=== PATIENT | male | born 1950 | race Caucasian/White ===

== ENCOUNTER 2016-09-17 16:00 | Emergency (ER) | payer OTHER ==
[2016-09-17 16:13] VITALS: BP 151/81
[2016-09-17] MEDS ORDERED: Ketorolac 60 MG/2 ML SDV IM ONE (16:28)
--- NOTE | 2016-09-17 18:56 | EDM.PDOC ---
ED HPI GENERAL MEDICAL PROBLEM - General Chief Complaint: General Stated Complaint: FELL ON BACK Time Seen by Provider: 09/17/16 16:55 Source of Information: Reports: Patient History Limitations: Reports: No limitations - History of Present Illness INITIAL COMMENTS - FREE TEXT/NARRATIVE: Feliciano is a 66 yo male who presents to the ER via private vehicle with concerns of muscle spasms in his back. States he was out ice fishing today and slipped on the ice, falling directly onto his back. Admits he didn't hit his head or have any severe pain initially. Continued to ice fish for a few hours and as the day went on started to notice some muscle spasms. States he found it difficulty with getting from a sitting to standing position. Upon arrival to the ER he had difficulty with ambulating as well d/t the spasms. Onset: today Location: Reports: back Improves with: Reports: Immobilization Worsens with: Reports: Movement Associated Symptoms: Reports: no other symptoms Back Pain Score (Numeric/FACES): 10 - Related Data Allergies Allergy/AdvReac Type Severity Reaction Status Date / Time morphine Allergy Cannot Verified 09/17/16 16:13 Remember Home Meds: Home Meds Albuterol Sulfate 2.5 mg NEB Q6H PRN 01/09/16 [History] Fexofenadine/Pseudoephedrine [Radha-D 12 Hour Tablet] 1 each PO Q12H PRN 01/08 [History] Sildenafil Citrate [Viagra] 25 mg PO ASDIRECTED PRN 01/09/16 [History] Budesonide/Formoterol [Symbicort 160-4.5 MCG] 2 puff INH BID 09/17/16 [History] atorvaSTATin [Lipitor] 20 mg PO BEDTIME 09/17/16 [History] metFORMIN [Glucophage] 1,000 mg PO BID 09/17/16 [History] Past Medical History HEENT History: Reports: Impaired vision Cardiovascular History: Reports: High cholesterol Endocrine/Metabolic History: Reports: Diabetes, type II Social & Family History - Tobacco Use Smoking Status *Q: Never Smoker - Caffeine Use Caffeine Use: Reports: Soda - Recreational Drug Use Recreational Drug Use: No ED ROS GENERAL - Review of Systems Review Of Systems: See Below Constitutional: Reports: no symptoms HEENT: Reports: No symptoms GI/Abdominal: Reports: No symptoms Musculoskeletal: Reports: back pain, muscle pain, muscle stiffness Neurological: Reports: Difficulty Walking. Denies: Dizziness, Headache, Numbness, Paresthesia, Seizure, Tingling, Weakness Psychiatric: Reports: No symptoms ED EXAM, GENERAL - Physical Exam Exam: See Below Exam Limited By: No limitations General Appearance: alert, no apparent distress Back Exam: decreased range of motion, muscle spasm (Lumbar paraspinal muscles L1 -L3), paraspinal tenderness. No: CVA tenderness (L), CVA tenderness (R), vertebral tenderness Neurological: alert, oriented, normal cognition, normal gait, normal reflexes, no motor/sensory deficits Psychiatric: normal affect, normal mood Skin Exam: Warm, Dry, Intact, Normal color, No rash Course - Vital Signs Last Recorded V/S: Last Vital Signs Temp 100.5 F 09/17/16 16:05 Pulse 102 H 09/17/16 16:05 Resp 20 09/17/16 16:05 BP 151/81 H 09/17/16 16:05 Pulse Ox 97 09/17/16 16:05 - Orders/Labs/Meds Orders: Active Orders 24 hr Category Date Time Status Thoracolumbar 2V [CR] Stat Exams 09/17/16 16:19 Taken Meds: Medications Discontinued Medications Generic Name Dose Route Start Last Admin Trade Name Freq PRN Reason Stop Dose Admin Ketorolac Tromethamine 60 mg 09/17/16 16:28 09/17/16 16:38 Toradol IM 09/17/16 16:29 60 mg ONETIME ONE Administration Orphenadrine Citrate 60 mg 09/17/16 16:28 09/17/16 16:39 Norflex IM 09/17/16 16:29 60 mg NOW STA Administration - Re-Assessments/Exams Free Text/Narrative Re-Assessment/Exam: X-ray of the thoracolumbar spine was done. Possible old compression fracture at T10, which Feliciano stated he had previously. No acute fractures noted to area of symptoms. 60mg of Norflex and 60mg of Toradol was given intramuscularly. Upon my arrival patient had significant improvement from the injections and was able to ambulate. Pain subsided from a 10 out of 10 to minimal presently. Will discharge home at this time with further instructions. and Feliciano both verbalized understanding and were in agreement. Departure - Departure Time of Disposition: 17:25 Disposition: Home, Self-Care 01 Condition: good Clinical Impression: Spasm of lumbar paraspinous muscle Instructions: Muscle Cramps and Spasms, Thoracic Strain, [id number] Referrals: PCP,None [Primary Care Provider] - Forms: ED Department Discharge Additional Instructions: 1) [place] 5/325 - 1-2 tablet every 4-6 hours as needed for pain 2) Toradol 10mg - 1 tablet every 8 hours as needed for pain/inflammation 3) Flexeril 10mg - 1 tablet every 8 hours as needed for muscle spasms 4) Rest 5) No more ice fishing!!!! 6) May try heat and ice as needed for relief. 7) Follow up if any concerns. - Problem List & Annotations (1) Spasm of lumbar paraspinous muscle SNOMED Code(s): 78280600, 55933593 Code(s): M62.830 - MUSCLE SPASM OF BACK Status: Acute - Problem List Review Problem List Initiated/Reviewed/Updated: Yes - My Orders Last 24 Hours: My Active Orders 09/17/16 16:19 Thoracolumbar 2V [CR] Stat - Assessment/Plan Last 24 Hours: My Active Orders 09/17/16 16:19 Thoracolumbar 2V [CR] Stat Plan: See course and additional instructions.
== END 2016-09-17 17:24 | disposition home or self-care (01) ==
LOC: CC.ED 16:00
DX: M62.830 Muscle spasm of back (principal); E78.00 Pure hypercholesterolemia, unspecified; E11.9 Type 2 diabetes mellitus without complications; Z79.84 Long term (current) use of oral hypoglycemic drugs; Z79.899 Other long term (current) drug therapy; Z88.5 Allergy status to narcotic agent; W00.0XXA Fall on same level due to ice and snow, initial encounter
CPT/HCPCS: 72080; 96372; 99283; J1885; J2360

== ENCOUNTER 2018-10-16 11:16 | Emergency (ER) | payer MEDICARE, BC ==
[2018-10-16] MEDS: fentaNYL 100 MCG/2 ML SDV IVPUSH ONE (11:25)
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
[2018-10-16] MEDS: Lidocaine 1% 20 ML MDV INJECT ONE (11:48)
[2018-10-16 12:02] VITALS: BP 143/88
[2018-10-16] MEDS: Acetaminophen/HYDROcodone 325-5 MG Tab PO ONE (12:16)
[2018-10-16] MEDS: ceFAZolin 1 GM Vial IVPUSH ONE (12:18)
== END 2018-10-16 13:12 ==
LOC: CC.ED 11:16
DX: S62.630B Displaced fracture of distal phalanx of right index finger, initial encounter for open fracture (principal); L08.9 Local infection of the skin and subcutaneous tissue, unspecified; E78.00 Pure hypercholesterolemia, unspecified; E11.9 Type 2 diabetes mellitus without complications; Z79.899 Other long term (current) drug therapy; Z88.5 Allergy status to narcotic agent; W31.2XXA Contact with powered woodworking and forming machines, initial encounter
CPT/HCPCS: 64450; 73140-F6; 96374; 96375; 99284; 99284-25; A9270-GY; J0690; J2001; J3010

== ENCOUNTER 2020-04-04 10:45 | Inpatient (IN) | payer MEDICARE, BC ==
[2020-04-04 11:26] LABS: CHLORIDE,CL 99 mEq/L (98-106); SODIUM,NA 137 mEq/L (136-145)
--- NOTE | 2020-04-04 11:58 | EDM.PDOC ---
ED HPI GENERAL MEDICAL PROBLEM - General Chief Complaint: Respiratory Problem Stated Complaint: SOB. COVID+ Time Seen by Provider: 04/04/20 11:00 Source of Information: Reports: Patient History Limitations: Reports: No Limitations - History of Present Illness INITIAL COMMENTS - FREE TEXT/NARRATIVE: States that he was diagnosed with COVID yesterday and has had an increase in SOB . States that his sats at home were running around 85%. When he arrived her per private car his sats were running between 94-95% on room air. He states that he had terrible diarrhea yesterday and that he had fainted when getting out of the bathroom last night. He has not had anything to eat today and minimal to drink. He complains of feeling weak. He has harsh cough which he states is non productive. Onset: Gradual Location: Reports: Generalized Associated Symptoms: Reports: Cough, cough w sputum, Fever/Chills, Loss of Appetite, Nausea/Vomiting, Shortness of Breath, Syncope headache Pain Score (Numeric/FACES): 4 - Related Data Allergies Allergy/AdvReac Type Severity Reaction Status Date / Time morphine AdvReac Nausea Verified 04/04/20 12:29 Home Meds: Home Meds Albuterol Sulfate 2.5 mg NEB Q6H PRN 01/09/16 [History] Fexofenadine/Pseudoephedrine [Radha-D 12 Hour Tablet] 1 each PO Q12H PRN 01/09/16 [History] Sildenafil Citrate [Viagra] 25 mg PO ASDIRECTED PRN 01/09/16 [History] metFORMIN [Glucophage] 1,000 mg PO BID 09/17/16 [History] Fluticasone Propionate [Flonase] 2 spray JOANN BID 10/16/18 [History] Rosuvastatin [Crestor] 5 mg PO DAILY 04/04/20 [History] Past Medical History HEENT History: Reports: Impaired Vision Cardiovascular History: Reports: High Cholesterol Respiratory History: Reports: Bronchitis, Recurrent Endocrine/Metabolic History: Reports: Diabetes, Type II Social & Family History - Family History Family Medical History: Noncontributory - Tobacco Use Smoking Status *Q: Never Smoker Second Hand Smoke Exposure: No - Caffeine Use Caffeine Use: Reports: Soda - Recreational Drug Use Recreational Drug Use: No - Living Situation & Occupation Living situation: Reports: , with Spouse Occupation: Retired ED ROS GENERAL - Review of Systems Review Of Systems: See Below Constitutional: Reports: Fever, Chills, Malaise, Weakness, Fatigue HEENT: Reports: No Symptoms Respiratory: Reports: Shortness of Breath, Cough Cardiovascular: Reports: No Symptoms. Denies: Edema GI/Abdominal: Reports: Diarrhea, Nausea : Reports: No Symptoms Musculoskeletal: Reports: No Symptoms Skin: Reports: No Symptoms Neurological: Reports: Weakness ED EXAM, GENERAL - Physical Exam Exam: See Below Exam Limited By: No Limitations General Appearance: Alert, WD/WN, Moderate Distress Ears: Normal External Exam, Normal Canal, Normal TMs Nose: Normal Inspection Throat/Mouth: Normal Inspection, Normal Oropharynx, No Airway Compromise Head: Atraumatic, Normocephalic Neck: Normal Inspection, Supple, Non-Tender Respiratory/Chest: Lungs Clear, Decreased Breath Sounds, Other (Very harsh non productive cough). No: Rhonchi, Wheezing Cardiovascular: Regular Rate, Rhythm, No Edema GI/Abdominal: Soft, Non-Tender, Other (hyperactive bowel sounds) Back Exam: Normal Inspection Extremities: Normal Inspection, No Pedal Edema, Normal Capillary Refill Neurological: Alert, Oriented, Normal Cognition Skin Exam: Warm, Dry, Intact Course - Vital Signs Last Recorded V/S: Last Vital Signs Temp 97.1 F 04/05/20 04:00 Pulse 62 04/05/20 04:00 Resp 16 04/05/20 04:00 BP 133/71 04/05/20 04:00 Pulse Ox 99 04/05/20 04:00 - Orders/Labs/Meds Orders: Active Orders 24 hr Category Date Time Status Chest 2V [CR] Stat Exams 04/04/20 10:46 Taken CULTURE BLOOD [BC] Stat Lab 04/04/20 11:12 Received CULTURE BLOOD [BC] Stat Lab 04/04/20 11:12 Received Blood Culture x2 Reflex Set [OM.PC] Stat Oth 04/04/20 10:46 Ordered Medication Orders Acetaminophen (Tylenol) 650 mg PO Q4H PRN PRN Reason: Pain (Mild 1-3)/fever Last Admin: 04/04/20 20:24 Dose: 650 mg Documented by: Admin: 04/04/20 13:07 Dose: 650 mg Documented by: SHAILESH Dexamethasone (Dexamethasone) 6 mg PO DAILY [facility] Last Admin: 04/04/20 14:19 Dose: 6 mg Documented by: SHAILESH Enoxaparin Sodium (Lovenox) 40 mg SUBCUT Q12H [facility] Last Admin: 04/04/20 23:44 Dose: 40 mg Documented by: Admin: 04/04/20 13:06 Dose: 40 mg Documented by: SHAILESH Fluticasone Propionate (Flonase) 0 gm JOANN BID [facility] Last Admin: 04/04/20 20:07 Dose: 2 spray Documented by: ELDA Lactated Ringer's (Ringers, Lactated) 1,000 mls @ 75 mls/hr IV ASDIRECTED [facility] Last Admin: 04/04/20 23:32 Dose: 75 mls/hr Documented by: Infusion: 04/04/20 23:32 Dose: 75 mls/hr Documented by: Admin: 04/04/20 13:07 Dose: 75 mls/hr Documented by: SHAILESH Metformin HCl (Glucophage) 1,000 mg PO BID [facility] Last Admin: 04/04/20 20:08 Dose: 1,000 mg Documented by: ELDA Rosuvastatin 5mg Tab (Ptom) 0 mg PO BEDTIME [facility] Last Admin: 04/04/20 20:06 Dose: 5 mg Documented by: ELDA Ondansetron HCl (Zofran) 4 mg IV Q6H PRN PRN Reason: Nausea/Vomiting Labs: Laboratory Tests 04/04/20 04/04/20 04/04/20 Range/Units 11:00 11:00 11:00 WBC 7.6 (5.0-10.0) 10^3/uL RBC 4.83 (4.50-6.00) 10^6/uL Hgb 14.3 (14.0-18.0) g/dL Hct 43.8 (40.0-54.0) % MCV 90.7 (82.0-94.0) fL MCH 29.6 (27.0-32.0) pg MCHC 32.6 L (33.0-38.0) g/dL RDW Coeff of Halle 13.8 (11.0-15.0) % Plt Count 141 L (150-400) 10^3/uL Neut % (Auto) 79.0 (35-85) % Lymph % (Auto) 14.7 (10-55) % [place] % (Auto) 6.2 (0-16) % Eos % (Auto) 0 (0-5) % Baso % (Auto) 0.1 (0-3) % Neut # (Auto) 6.03 (1.80-7.00) 10^3/uL Lymph # (Auto) 1.12 (1.00-4.80) 10^3/uL [place] # (Auto) 0.47 (0.00-0.80) 10^3/uL Eos # (Auto) 0.00 (0.00-0.45) 10^3/uL Baso # (Auto) 0.01 10^3/uL D-Dimer, Quantitative 0.33 (0.00-0.50) Sodium 137 (136-145) mEq/L Potassium 3.6 (3.5-5.0) mEq/L Chloride 99 (98-106) mEq/L Carbon Dioxide 28 (21-32) mmol/L BUN 21 H (7-18) mg/dL Creatinine 1.1 (0.7-1.3) mg/dL Est Cr Clr Drug Dosing 63.05 mL/min Estimated GFR (MDRD) > 60 (>=60) mL/min Glucose 109 H (75-99) mg/dL Lactic Acid (0.4-2.0) mmol/L Calcium 9.0 (8.4-10.1) mg/dL Magnesium 1.7 L (1.8-2.4) mg/dL Total Bilirubin 0.7 (0.0-1.0) mg/dL AST 24 (15-37) U/L ALT 28 (12-78) U/L Alkaline Phosphatase 46 (46-116) U/L C-Reactive Protein 5.9 H (0.2-0.8) mg/dL Total Protein 7.6 (6.4-8.2) g/dL Albumin 3.7 (3.4-5.0) g/dL 04/04/20 Range/Units 11:00 WBC (5.0-10.0) 10^3/uL RBC (4.50-6.00) 10^6/uL Hgb (14.0-18.0) g/dL Hct (40.0-54.0) % MCV (82.0-94.0) fL MCH (27.0-32.0) pg MCHC (33.0-38.0) g/dL RDW Coeff of Halle (11.0-15.0) % Plt Count (150-400) 10^3/uL Neut % (Auto) (35-85) % Lymph % (Auto) (10-55) % [place] % (Auto) (0-16) % Eos % (Auto) (0-5) % Baso % (Auto) (0-3) % Neut # (Auto) (1.80-7.00) 10^3/uL Lymph # (Auto) (1.00-4.80) 10^3/uL [place] # (Auto) (0.00-0.80) 10^3/uL Eos # (Auto) (0.00-0.45) 10^3/uL Baso # (Auto) 10^3/uL D-Dimer, Quantitative (0.00-0.50) Sodium (136-145) mEq/L Potassium (3.5-5.0) mEq/L Chloride (98-106) mEq/L Carbon Dioxide (21-32) mmol/L BUN (7-18) mg/dL Creatinine (0.7-1.3) mg/dL Est Cr Clr Drug Dosing mL/min Estimated GFR (MDRD) (>=60) mL/min Glucose (75-99) mg/dL Lactic Acid 1.7 (0.4-2.0) mmol/L Calcium (8.4-10.1) mg/dL Magnesium (1.8-2.4) mg/dL Total Bilirubin (0.0-1.0) mg/dL AST (15-37) U/L ALT (12-78) U/L Alkaline Phosphatase (46-116) U/L C-Reactive Protein (0.2-0.8) mg/dL Total Protein (6.4-8.2) g/dL Albumin (3.4-5.0) g/dL Meds: Medications Generic Name Dose Route Start Last Admin Trade Name Freq PRN Reason Stop Dose Admin Acetaminophen 650 mg 04/04/20 12:37 04/04/20 20:24 Tylenol PO 650 mg Q4H PRN Administration Pain (Mild 1-3)/fever Dexamethasone 6 mg 04/04/20 12:45 04/04/20 14:19 Dexamethasone PO 6 mg DAILY AMBER Administration Enoxaparin Sodium 40 mg 04/04/20 12:37 04/04/20 23:44 Lovenox SUBCUT 40 mg Q12H AMBER Administration Fluticasone Propionate 0 gm 04/04/20 20:00 04/04/20 20:07 Flonase JOANN 2 spray BID AMBER Administration Lactated Ringer's 1,000 mls @ 75 mls/hr 04/04/20 12:37 04/04/20 23:32 Ringers, Lactated IV 75 mls/hr ASDIRECTED AMBER Administration Metformin HCl 1,000 mg 04/04/20 20:00 04/04/20 20:08 Glucophage PO 1,000 mg BID AMBER Administration Rosuvastatin 5mg Tab 0 mg 04/05/20 20:00 04/04/20 20:06 Ptom PO 5 mg BEDTIME AMBER Administration Ondansetron HCl 4 mg 04/04/20 12:37 Zofran IV Q6H PRN Nausea/Vomiting Discontinued Medications Generic Name Dose Route Start Last Admin Trade Name Freq PRN Reason Stop Dose Admin Remdesivir 200 mg/ Sodium 250 mls @ 250 mls/hr 04/04/20 12:37 Chloride IV 04/04/20 12:38 ONETIME ONE - Re-Assessments/Exams Free Text/Narrative Re-Assessment/Exam: 04/04/[address] Xiong. He does not meet criteria for Rem desivir as his sats have maintained 94-95% on room air when he was in ER. His chest xray does not show any infiltrates at this time. He will be admitted for fluids and monitoring with repeat labs in the morning and CXR. agrees with admission. Departure - Departure Time of Disposition: 11:57 Disposition: Admitted As Inpatient 66 Condition: Fair Clinical Impression: COVID-19, Weakness Diarrhea Qualifiers: Diarrhea type: unspecified type Qualified Code(s): R19.7 - Diarrhea, unspecified - Discharge Information *PRESCRIPTION DRUG MONITORING PROGRAM REVIEWED*: Not Applicable *COPY OF PRESCRIPTION DRUG MONITORING REPORT IN PATIENT MARLENI: Not Applicable Sepsis Event Note (ED) - Evaluation Sepsis Screening Result: No Definite Risk - Problem List & Annotations (1) COVID-19 SNOMED Code(s): 563607776 Code(s): U07.1 - COVID-19 Status: Acute Priority: High Current Visit: Yes (2) Diarrhea SNOMED Code(s): 77741920 Code(s): R19.7 - DIARRHEA, UNSPECIFIED Status: Acute Priority: High Current Visit: Yes Qualifiers: Diarrhea type: unspecified type Qualified Code(s): R19.7 - Diarrhea, unspecified (3) Weakness SNOMED Code(s): 83307096 Code(s): R53.1 - WEAKNESS Status: Acute Priority: Medium Current Visit: Yes - My Orders Last 24 Hours: My Active Orders 04/04/20 10:46 Chest 2V [CR] Stat Blood Culture x2 Reflex Set [OM.PC] Stat 04/04/20 11:12 CULTURE BLOOD [BC] Stat CULTURE BLOOD [BC] Stat - Assessment/Plan Admission H&P: Please use this note as an admission H&P Last 24 Hours: My Active Orders 04/04/20 10:46 Chest 2V [CR] Stat Blood Culture x2 Reflex Set [OM.PC] Stat 04/04/20 11:12 CULTURE BLOOD [BC] Stat CULTURE BLOOD [BC] Stat
[2020-04-04] MEDS ORDERED: Ondansetron 4 MG/2 ML SDV IV PRN (12:37)
[2020-04-04] MEDS: Enoxaparin 40 MG/0.4 ML Syringe SUBCUT SCH ×2 (13:06→23:44)
[2020-04-04] MEDS: Lactated Ringers 1,000 ML IV SCH ×2 (13:07→23:32)
[2020-04-04] MEDS: Acetaminophen 325 MG Tab PO PRN ×2 (13:07→20:24)
[2020-04-04] MEDS: Dexamethasone 4 MG Tab PO SCH (14:19)
[2020-04-04] MEDS: Fluticasone Propionate Nasal Spray 16 GM Bottle NAS SCH (20:07)
[2020-04-04] MEDS: metFORMIN 500 MG Tab PO SCH (20:08)
[2020-04-05] MEDS: Dexamethasone 4 MG Tab PO SCH (08:08)
[2020-04-05] MEDS: metFORMIN 500 MG Tab PO SCH (08:09)
[2020-04-05] MEDS: Fluticasone Propionate Nasal Spray 16 GM Bottle NAS SCH (08:10)
[2020-04-05 09:02] LABS: CHLORIDE,CL 102 mEq/L (98-106); SODIUM,NA 140 mEq/L (136-145)
[2020-04-05 11:43] VITALS: BP 122/84; PULSE 70
[2020-04-05] MEDS: Enoxaparin 40 MG/0.4 ML Syringe SUBCUT SCH (11:43)
--- NOTE | 2020-04-05 15:56 | PCM.DCSUM1 ---
Discharge Summary - Hospital Course Free Text/Narrative:: Feliciano is a 69 year old positive COVID 19 patient presents to ER with complaints of weakness and shortness of breath. Stated his sats were running around 85% on room air. On arrival to the ER, sats were 94-95%. Had diarrhea yesterday and fainted in the bathroom at home last night. Little oral intake, concerns with increased weakness. Harsh nonproductive cough. Chest xray clear. Labs normal Diagnosis: Stroke: No Modified Joni Scale: No Symptoms at All Modified Fortine Scale Score: 0 - Discharge Data Discharge Date: 04/05/20 Discharge Disposition: Home, Self-Care 01 Condition: Good - Referral to Home Health Primary Care Physician: Anand Chow PA-C - Discharge Diagnosis/Problem(s) (1) COVID-19 SNOMED Code(s): 094480154 ICD Code: U07.1 - COVID-19 Status: Acute Priority: High - Patient Summary/Data Complications: none Hospital Course: Patient is feeling much better today. Was started on IV fluids on admission. States headache and body aches have much improved. He continues to have cough but oxygen sats have remained over 90% on room air. Low grade temp on admission but none since. Labs remain stable, negative this am. - Patient Instructions Diet: Usual Diet as Tolerated Activity: As Tolerated - Discharge Plan *PRESCRIPTION DRUG MONITORING PROGRAM REVIEWED*: Not Applicable *COPY OF PRESCRIPTION DRUG MONITORING REPORT IN PATIENT MARLENI: Not Applicable Home Medications: Home Meds Albuterol Sulfate 2.5 mg NEB Q6H PRN 01/09/16 [History] Fexofenadine/Pseudoephedrine [Radha-D 12 Hour Tablet] 1 each PO Q12H PRN 01/09/16 [History] Sildenafil Citrate [Viagra] 25 mg PO ASDIRECTED PRN 01/09/16 [History] metFORMIN [Glucophage] 1,000 mg PO BID 09/17/16 [History] Fluticasone Propionate [Flonase] 2 spray JOANN BID 10/16/18 [History] Rosuvastatin [Crestor] 5 mg PO DAILY 04/04/20 [History] Forms: ED Department Discharge Referrals: Anand Chow PA-C [Primary Care Provider] - (Hospital follow up in [address] Xiong) - Discharge Summary/Plan Comment DC Time >30 min.: No - General Info Date of Service: 04/05/20 Admission Dx/Problem (Free Text: COVID 19 Functional Status: Reports: Pain Controlled, Tolerating Diet, Ambulating - Review of Systems General: Reports: Weakness, Fatigue, Malaise HEENT: Reports: No Symptoms Pulmonary: Reports: Cough. Denies: Shortness of Breath Cardiovascular: Denies: Chest Pain, Edema, Lightheadedness Gastrointestinal: Denies: Abdominal Pain, Nausea, Vomiting Genitourinary: Reports: No Symptoms Musculoskeletal: Reports: No Symptoms Skin: Reports: No Symptoms Neurological: Reports: No Symptoms - Patient Data Vitals - Most Recent: Last Vital Signs Temp 98.4 F 04/05/20 11:43 Pulse 70 04/05/20 11:43 Resp 18 04/05/20 11:43 BP 122/84 04/05/20 11:43 Pulse Ox 95 04/05/20 11:43 Weight - Most Recent: 211 lb 6 oz I&O - Last 24 hours: Intake & Output 04/05/20 04/05/20 04/05/20 06:59 14:59 22:59 Intake Total 1281 Balance 1281 Lab Results - Last 24 hrs: Laboratory Results - last 24 hr 04/05/20 04/05/20 Range/Units 08:40 08:40 WBC 8.2 (5.0-10.0) 10^3/uL RBC 4.91 (4.50-6.00) 10^6/uL Hgb 14.4 (14.0-18.0) g/dL Hct 44.6 (40.0-54.0) % MCV 90.8 (82.0-94.0) fL MCH 29.3 (27.0-32.0) pg MCHC 32.3 L (33.0-38.0) g/dL RDW Coeff of Halle 13.9 (11.0-15.0) % Plt Count 160 (150-400) 10^3/uL Neut % (Auto) 79.2 (35-85) % Lymph % (Auto) 14.8 (10-55) % Johnson % (Auto) 6.0 (0-16) % Eos % (Auto) 0 (0-5) % Baso % (Auto) 0 (0-3) % Neut # (Auto) 6.51 (1.80-7.00) 10^3/uL Lymph # (Auto) 1.22 (1.00-4.80) 10^3/uL Johnson # (Auto) 0.49 (0.00-0.80) 10^3/uL Eos # (Auto) 0.00 (0.00-0.45) 10^3/uL Baso # (Auto) 0.00 10^3/uL Sodium 140 (136-145) mEq/L Potassium 4.1 (3.5-5.0) mEq/L Chloride 102 (98-106) mEq/L Carbon Dioxide 28 (21-32) mmol/L BUN 23 H (7-18) mg/dL Creatinine 0.9 (0.7-1.3) mg/dL Est Cr Clr Drug Dosing 79.65 mL/min Estimated GFR (MDRD) > 60 (>=60) mL/min Glucose 122 H (75-99) mg/dL Calcium 9.0 (8.4-10.1) mg/dL Total Bilirubin 0.7 (0.0-1.0) mg/dL AST 26 (15-37) U/L ALT 33 (12-78) U/L Alkaline Phosphatase 43 L (46-116) U/L C-Reactive Protein 9.8 H (0.2-0.8) mg/dL Total Protein 7.4 (6.4-8.2) g/dL Albumin 3.2 L (3.4-5.0) g/dL ERMA Results - Last 24 hrs: Microbiology 04/04/20 11:12 Aerobic Blood Culture - Preliminary Blood - Venous NO GROWTH AFTER 1 DAY Anaerobic Blood Culture - Preliminary NO GROWTH AFTER 1 DAY 04/04/20 11:12 Aerobic Blood Culture - Preliminary Blood - Venous - Lab Draw NO GROWTH AFTER 1 DAY Anaerobic Blood Culture - Preliminary NO GROWTH AFTER 1 DAY Med Orders - Current: Current Medications Discontinued Medications Acetaminophen (Tylenol) 650 mg PO Q4H PRN PRN Reason: Pain (Mild 1-3)/fever Last Admin: 04/04/20 20:24 Dose: 650 mg Documented by: Dexamethasone (Dexamethasone) 6 mg PO DAILY [facility] Last Admin: 04/05/20 08:08 Dose: 6 mg Documented by: Enoxaparin Sodium (Lovenox) 40 mg SUBCUT Q12H [facility] Last Admin: 10/09/20 11:43 Dose: 40 mg Documented by: Fluticasone Propionate (Flonase) 0 gm JOANN BID [facility] Last Admin: 04/05/20 08:10 Dose: 2 spray Documented by: Lactated Ringer's (Ringers, Lactated) 1,000 mls @ 75 mls/hr IV ASDIRECTED [facility] Last Admin: 04/04/20 23:32 Dose: 75 mls/hr Documented by: Remdesivir 200 mg/ Sodium (Chloride) 250 mls @ 250 mls/hr IV ONETIME ONE Stop: 04/04/20 12:38 Metformin HCl (Glucophage) 1,000 mg PO BID [facility] Last Admin: 04/05/20 08:09 Dose: 1,000 mg Documented by: Rosuvastatin 5mg Tab (Ptom) 0 mg PO BEDTIME [facility] Last Admin: 04/04/20 20:06 Dose: 5 mg Documented by: Ondansetron HCl (Zofran) 4 mg IV Q6H PRN PRN Reason: Nausea/Vomiting - Exam General: Reports: Alert, Oriented HEENT: Reports: Mucous Membr. Moist/[place] Neck: Reports: Supple Lungs: Reports: Clear to Auscultation, Normal Respiratory Effort Cardiovascular: Reports: Regular Rate, Regular Rhythm GI/Abdominal Exam: Normal Bowel Sounds, Soft, Non-Tender Extremities: Normal Inspection, No Pedal Edema Skin: Reports: Warm, Dry Neurological: Reports: No New Focal Deficit
[2020-04-05] MEDS ORDERED: ROSUVASTATIN 5 MG PO SCH (20:00)
== END 2020-04-05 13:15 | disposition home or self-care (01) | DRG 179 ==
LOC: CC.ED 10:45 → CC.MS 11:59 → UNDODISIN 04-05 13:15
PROVIDERS: ADMIT Physician Assistant Medical; ATTEND Family Medicine
PROC: XW033E5 Introduction of Remdesivir Anti-infective into Peripheral Vein, Percutaneous Approach, New Technology Group 5 (ICD-10-PCS; principal; 2020-04-04)
PROC: 8E0ZXY6 Isolation (ICD-10-PCS; 2020-04-04)
DX: U07.1 COVID-19 (principal); R19.7 Diarrhea, unspecified; H54.7 Unspecified visual loss; E78.00 Pure hypercholesterolemia, unspecified; E11.9 Type 2 diabetes mellitus without complications; Z79.84 Long term (current) use of oral hypoglycemic drugs; Z88.6 Allergy status to analgesic agent; Z88.5 Allergy status to narcotic agent; Z79.899 Other long term (current) drug therapy
CPT/HCPCS: 36415; 71045; 71046; 80053; 83605; 83735; 85025; 85379; 86140; 87040; 93005; 99285-25; A9270-GY; J1650; J7120; J8540

== ENCOUNTER 2020-04-15 09:08 | Emergency (ER) | payer MEDICARE, BC ==
--- NOTE | 2020-04-15 09:30 | EDM.PDOC ---
ED HPI GENERAL MEDICAL PROBLEM - General Chief Complaint: General Stated Complaint: SOB Time Seen by Provider: 04/15/20 09:23 Source of Information: Reports: Patient History Limitations: Reports: No Limitations - History of Present Illness INITIAL COMMENTS - FREE TEXT/NARRATIVE: This patient is a 69 year old male that presents to the ER. Patient reports that he started about 14 days ago having mild shortness of breath. He reports he was tested on the 7th with a positive COVID test. He reports he was admitted for a night and was doing fine and discharged home. He reports though the last 10 days, he has become worse. He reports it has progressively become worse with generalized weakness, headache, productive cough, shortness of breath. He reports that this morning he felt very short of breath and decided to come the ER. Onset Date: 04/05/20 Duration: Day(s): (14 days, 10 days worse, especially today though) Severity: Severe Improves with: Reports: None Worsens with: Reports: None Associated Symptoms: Reports: Chest Pain, Cough, cough w sputum, Headaches, Loss of Appetite, Malaise, Nausea/Vomiting, Shortness of Breath, Weakness. Denies: Diaphoresis, Fever/Chills, Rash, Seizure, Syncope headache Pain Score (Numeric/FACES): 7 - Related Data Allergies Allergy/AdvReac Type Severity Reaction Status Date / Time morphine AdvReac Nausea Verified 04/15/20 09:21 Home Meds: Home Meds Albuterol Sulfate 2.5 mg NEB Q6H PRN 01/09/16 [History] Fexofenadine/Pseudoephedrine [Radha-D 12 Hour Tablet] 1 each PO Q12H PRN 01/09/16 [History] Sildenafil Citrate [Viagra] 25 mg PO ASDIRECTED PRN 01/09/16 [History] metFORMIN [Glucophage] 1,000 mg PO BID 09/17/16 [History] Fluticasone Propionate [Flonase] 2 spray JOANN BID 10/16/18 [History] Rosuvastatin [Crestor] 5 mg PO DAILY 04/04/20 [History] Past Medical History HEENT History: Reports: Impaired Vision Cardiovascular History: Reports: High Cholesterol Respiratory History: Reports: Bronchitis, Recurrent Endocrine/Metabolic History: Reports: Diabetes, Type II Social & Family History - Family History Family Medical History: Noncontributory - Tobacco Use Tobacco Use Status *Q: Never Tobacco User Second Hand Smoke Exposure: No - Caffeine Use Caffeine Use: Reports: None - Recreational Drug Use Recreational Drug Use: No - Living Situation & Occupation Living situation: Reports: , with Spouse Occupation: Retired ED ROS GENERAL - Review of Systems Review Of Systems: See Below Constitutional: Reports: Malaise, Weakness, Fatigue, Decreased Appetite HEENT: Reports: No Symptoms Respiratory: Reports: Shortness of Breath, Pleuritic Chest Pain, Cough, Sputum Cardiovascular: Reports: Chest Pain. Denies: Syncope Endocrine: Reports: No Symptoms GI/Abdominal: Reports: Diarrhea, Nausea. Denies: Abdominal Pain, Vomiting : Reports: No Symptoms Musculoskeletal: Reports: No Symptoms Skin: Reports: No Symptoms Neurological: Reports: Headache. Denies: Syncope Psychiatric: Reports: No Symptoms Hematologic/Lymphatic: Reports: No Symptoms Immunologic: Reports: No Symptoms ED EXAM, GENERAL - Physical Exam Exam: See Below Exam Limited By: No Limitations General Appearance: Alert, WD/WN, Anxious, Moderate Distress Eye Exam: Bilateral Eye: Normal Inspection, PERRL Ears: Normal External Exam, Normal Canal, Hearing Grossly Normal, Normal TMs Ear Exam: Bilateral Ear: Auricle Normal, Canal Normal, TM normal Head: Atraumatic, Normocephalic Neck: Normal Inspection, Supple, Non-Tender, Full Range of Motion Respiratory/Chest: Lungs Clear, Respiratory Distress (tachypnea, oxygen 84% on RA. ), Accessory Muscle Use Cardiovascular: Normal Peripheral Pulses, Tachycardia (110 on exam) Peripheral Pulses: 2+: Radial (L), Radial (R), Posterior Tibial (L), Posterior Tibial (R) GI/Abdominal: Soft, Non-Tender Back Exam: Normal Inspection, Full Range of Motion Extremities: Normal Inspection, Normal Range of Motion, Non-Tender, No Pedal Edema, Normal Capillary Refill Neurological: Alert, Oriented, No Motor/Sensory Deficits Psychiatric: Anxious Skin Exam: Warm, Dry, Intact, Normal Color, No Rash Lymphatic: No Adenopathy #1 Interpretation EKG Date: 04/15/20 Time: 09:39 Rate (Beats/Min): 92 ST-T: Normal ME/PQ Interval: Lot of PVCs Comparison: NA - No Prior EKG Course - Vital Signs Last Recorded V/S: Last Vital Signs Temp 97.7 F 04/15/20 09:09 Pulse 92 04/15/20 10:01 Resp 26 H 04/15/20 10:01 BP 108/74 04/15/20 10:01 Pulse Ox 92 L 04/15/20 10:01 - Orders/Labs/Meds Orders: Active Orders 24 hr Category Date Time Status Ang Chest [CT] Stat Exams 04/15/20 09:27 Taken Chest 2V [CR] Stat Exams 04/15/20 09:23 Taken CULTURE BLOOD [BC] Stat Lab 04/15/20 09:25 Ordered CULTURE BLOOD [BC] Stat Lab 04/15/20 09:25 Results INR,PT,PROTHROMBIN TIME [COAG] Stat Lab 04/15/20 12:00 Ordered PTT,PARTIAL THROMBOPLSTIN TIME [COAG] Stat Lab 04/15/20 12:00 Ordered Doxycycline [Vibramycin] 100 mg Med 04/15/20 12:10 Ordered Sodium Chloride 0.9% [Normal Saline] 100 ml IV ONETIME Enoxaparin [Lovenox] Med 04/15/20 12:15 Ordered 91 mg SUBCUT Q12H Sodium Chloride 0.9% [Normal Saline] 250 ml Med 04/15/20 12:15 Ordered IV .BOLUS Blood Culture x2 Reflex Set [OM.PC] Stat Oth 04/15/20 09:23 Ordered Isolation [COMM] Routine Oth 04/15/20 09:25 Active Medication Orders Enoxaparin Sodium (Lovenox) 91 mg SUBCUT Q12H AMBER Sodium Chloride (Normal Saline) 250 mls @ 1,000 mls/hr IV .BOLUS AMBER Doxycycline Hyclate 100 mg/ (Sodium Chloride) 100 mls @ 100 mls/hr IV ONETIME ONE Stop: 04/15/20 13:09 Labs: Laboratory Tests 04/15/20 04/15/20 04/15/20 Range/Units 09:23 09:23 09:23 WBC 13.5 H (5.0-10.0) 10^3/uL RBC 5.03 (4.50-6.00) 10^6/uL Hgb 14.7 (14.0-18.0) g/dL Hct 44.4 (40.0-54.0) % MCV 88.3 (82.0-94.0) fL MCH 29.2 (27.0-32.0) pg MCHC 33.1 (33.0-38.0) g/dL RDW Coeff of Halle 13.6 (11.0-15.0) % Plt Count 225 (150-400) 10^3/uL Add Manual Diff Yes Neutrophils % (Manual) 88 H (35-85) % Band Neutrophils % 3 (0-5) % Lymphocytes % (Manual) 6 L (21-55) % Monocytes % (Manual) 3 (2-12) % ABG pH ABG pCO2 ABG pO2 ABG HCO3 ABG O2 Saturation ABG Base Excess Sushant Test O2 Delivery Device Oxygen Flow Rate Sodium 140 (136-145) mEq/L Potassium 4.1 (3.5-5.0) mEq/L Chloride 102 (98-106) mEq/L Carbon Dioxide 26 (21-32) mmol/L BUN 21 H (7-18) mg/dL Creatinine 1.1 (0.7-1.3) mg/dL Est Cr Clr Drug Dosing 63.05 mL/min Estimated GFR (MDRD) > 60 (>=60) mL/min Glucose 149 H (75-99) mg/dL Lactic Acid (0.4-2.0) mmol/L Calcium 8.8 (8.4-10.1) mg/dL Total Bilirubin 1.6 H (0.0-1.0) mg/dL AST 24 (15-37) U/L ALT 72 (12-78) U/L Alkaline Phosphatase 71 (46-116) U/L Lactate Dehydrogenase 286 H (100-190) U/L Creatine Kinase 36 (35-232) U/L Troponin I < 0.017 (0.00-0.06) ng/mL C-Reactive Protein 28.2 H (0.2-0.8) mg/dL NT-Pro-B Natriuret Pep 241 (0-1000) pg/mL Total Protein 7.2 (6.4-8.2) g/dL Albumin 2.5 L (3.4-5.0) g/dL SARS CoV-2 RNA Rapid KAYDEN Positive H (NEGATIVE) 04/15/20 04/15/20 04/15/20 Range/Units 09:23 09:26 10:07 WBC (5.0-10.0) 10^3/uL RBC (4.50-6.00) 10^6/uL Hgb (14.0-18.0) g/dL Hct (40.0-54.0) % MCV (82.0-94.0) fL MCH (27.0-32.0) pg MCHC (33.0-38.0) g/dL RDW Coeff of Halle (11.0-15.0) % Plt Count (150-400) 10^3/uL Add Manual Diff Neutrophils % (Manual) (35-85) % Band Neutrophils % (0-5) % Lymphocytes % (Manual) (21-55) % Monocytes % (Manual) (2-12) % ABG pH Cancelled 7.47 H ABG pCO2 Cancelled 25 L ABG pO2 Cancelled 51 L ABG HCO3 Cancelled 18.4 L ABG O2 Saturation Cancelled 89 L ABG Base Excess Cancelled -5.0 L Sushant Test Cancelled O2 Delivery Device Cancelled Nasal cannula Oxygen Flow Rate Cancelled 6.0 Sodium (136-145) mEq/L Potassium (3.5-5.0) mEq/L Chloride (98-106) mEq/L Carbon Dioxide (21-32) mmol/L BUN (7-18) mg/dL Creatinine (0.7-1.3) mg/dL Est Cr Clr Drug Dosing mL/min Estimated GFR (MDRD) (>=60) mL/min Glucose (75-99) mg/dL Lactic Acid 2.8 H (0.4-2.0) mmol/L Calcium (8.4-10.1) mg/dL Total Bilirubin (0.0-1.0) mg/dL AST (15-37) U/L ALT (12-78) U/L Alkaline Phosphatase (46-116) U/L Lactate Dehydrogenase (100-190) U/L Creatine Kinase (35-232) U/L Troponin I (0.00-0.06) ng/mL C-Reactive Protein (0.2-0.8) mg/dL NT-Pro-B Natriuret Pep (0-1000) pg/mL Total Protein (6.4-8.2) g/dL Albumin (3.4-5.0) g/dL SARS CoV-2 RNA Rapid KAYDEN (NEGATIVE) Meds: Medications Generic Name Dose Route Start Last Admin Trade Name Freq PRN Reason Stop Dose Admin Enoxaparin Sodium 91 mg 04/15/20 12:15 Lovenox SUBCUT Q12H AMBER Sodium Chloride 250 mls @ 1,000 mls/hr 04/15/20 12:15 Normal Saline IV .BOLUS AMBER Doxycycline Hyclate 100 mg/ 100 mls @ 100 mls/hr 04/15/20 12:10 Sodium Chloride IV 04/15/20 13:09 ONETIME ONE Discontinued Medications Generic Name Dose Route Start Last Admin Trade Name Freq PRN Reason Stop Dose Admin Ceftriaxone Sodium 1 gm 04/15/20 12:10 Rocephin IVPUSH 04/15/20 12:11 ONETIME ONE Iopamidol 100 ml 04/15/20 10:16 04/15/20 10:50 Isovue-370 (76%) IVPUSH 04/15/20 10:17 100 ml ONETIME ONE Administration - Radiology Interpretation Free Text/Narrative:: Initial CXR: poor quality, repeat requested. Repeat CXR: bilateral basee opacities consistent with COVID. CTA CHEST: Subsegmental pulmonary emboli to the right midlung and left upper lung. Bibasilar consolidations and peripheral groundglass opacities consistent with known COVID infection. Compression deformities midthoracic spine, indeterminate age. CT Results Date: 04/15/20 CT Results Time: 11:40 - Re-Assessments/Exams Free Text/Narrative Re-Assessment/Exam: 04/15/20 11:28 Patient is breathing now at 26 minute on 6L NC at 89%. He does not appear as distressed. Awaiting CTA results at this time. 04/15/20 11:54 I spoke to the patient about his findings, he asked to speak to his on where to be transferred. I spoke to , she would like . I called , spoke to Dr. Huston about this patient. Departure - Departure Time of Disposition: 12:15 Disposition: DC/Tfer to Acute Hospital 02 Clinical Impression: COVID-19 Pulmonary embolism Qualifiers: Pulmonary embolism type: unspecified Chronicity: acute Acute cor pulmonale presence: unspecified Qualified Code(s): I26.99 - Other pulmonary embolism without acute cor pulmonale Pneumonia Qualifiers: Pneumonia type: due to unspecified organism Laterality: bilateral Lung location: lower lobe of lung Qualified Code(s): J18.9 - Pneumonia, unspecified organism - Discharge Information *PRESCRIPTION DRUG MONITORING PROGRAM REVIEWED*: Not Applicable *COPY OF PRESCRIPTION DRUG MONITORING REPORT IN PATIENT MARLENI: Not Applicable Referrals: Anand Chow PA-C [Primary Care Provider] - Forms: ED Department Discharge Sepsis Event Note (ED) - Evaluation Sepsis Screening Result: No Definite Risk - Focused Exam Vital Signs: Vital Signs Temp Pulse Resp BP Pulse Ox 04/15/20 10:01 92 26 H 108/74 92 L 04/15/20 09:09 97.7 F 95 28 H 114/68 84 L - My Orders Last 24 Hours: My Active Orders 04/15/20 09:23 Chest 2V [CR] Stat Blood Culture x2 Reflex Set [OM.PC] Stat 04/15/20 09:25 CULTURE BLOOD [BC] Stat CULTURE BLOOD [BC] Stat Isolation [COMM] Routine 04/15/20 09:27 Ang Chest [CT] Stat 04/15/20 12:00 INR,PT,PROTHROMBIN TIME [COAG] Stat PTT,PARTIAL THROMBOPLSTIN TIME [COAG] Stat 04/15/20 12:10 Doxycycline [Vibramycin] 100 mg Sodium Chloride 0.9% [Normal Saline] 100 ml IV ONETIME 04/15/20 12:15 Enoxaparin [Lovenox] 91 mg SUBCUT Q12H Sodium Chloride 0.9% [Normal Saline] 250 ml IV .BOLUS - Assessment/Plan Last 24 Hours: My Active Orders 04/15/20 09:23 Chest 2V [CR] Stat Blood Culture x2 Reflex Set [OM.PC] Stat 04/15/20 09:25 CULTURE BLOOD [BC] Stat CULTURE BLOOD [BC] Stat Isolation [COMM] Routine 04/15/20 09:27 Ang Chest [CT] Stat 04/15/20 12:00 INR,PT,PROTHROMBIN TIME [COAG] Stat PTT,PARTIAL THROMBOPLSTIN TIME [COAG] Stat 04/15/20 12:10 Doxycycline [Vibramycin] 100 mg Sodium Chloride 0.9% [Normal Saline] 100 ml IV ONETIME 04/15/20 12:15 Enoxaparin [Lovenox] 91 mg SUBCUT Q12H Sodium Chloride 0.9% [Normal Saline] 250 ml IV .BOLUS Plan: PLEASE SEE RN NOTE FOR PFSH This patient is being transferred to . I discussed with the patient risk vs benefits of blood thinner medications for his PEs. He understands could result. He has accepted the risk. Risk of transfer is mvc, crash, , worsening of condition. The risk of staying in [place] is , worsening of condition. The benefits of transfer are higher level of care, COVID unit, ICU. The benefits of staying in [place] are close to home.
[2020-04-15 10:08] LABS: BICARBONATE,ARTERIAL 18.4 mm/L (22.0-26.0); O2 DELIVERY DEVICE NASAL CANNULA; O2 SATURATION ARTERIAL 89 % (95-98); PCO2 ARTERIAL 25 mm/Hg0 (35-45); PO2 ARTERIAL 51 mm/Hg (80-100)
[2020-04-15] MEDS ORDERED: Iopamidol 755 Mg/ML 100 ML Bottle IVPUSH ONE (10:16)
[2020-04-15 10:18] LABS: CHLORIDE,CL 102 mEq/L (98-106); SODIUM,NA 140 mEq/L (136-145)
[2020-04-15] MEDS ORDERED: Doxycycline 100 MG in Sodium Chloride 0.9% 100 ML IV ONE (12:10)
[2020-04-15] MEDS ORDERED: cefTRIAXone 1 GM Vial IVPUSH ONE (12:10)
[2020-04-15] MEDS ORDERED: Sodium Chloride 0.9% 250 ML IV SCH (12:15)
[2020-04-15] MEDS ORDERED: Enoxaparin 100 MG/1 ML Syringe SUBCUT SCH (12:15)
[2020-04-15 12:23] LABS: PTT,PARTIAL THROMBOPLSTIN TIME 22.7 SEC (23.2-32.3)
[2020-04-15 12:39] VITALS: BP 123/78; PULSE 98
== END 2020-04-15 13:13 ==
LOC: CC.ED 09:08
DX: U07.1 COVID-19 (principal); J12.89 Other viral pneumonia; I26.99 Other pulmonary embolism without acute cor pulmonale; E78.00 Pure hypercholesterolemia, unspecified; E11.9 Type 2 diabetes mellitus without complications; Z79.84 Long term (current) use of oral hypoglycemic drugs; Z79.899 Other long term (current) drug therapy; Z88.5 Allergy status to narcotic agent
CPT/HCPCS: 36415; 36600; 71046; 71275; 80053; 82550; 82803; 83605; 83615; 83880; 84484; 85025; 85610; 85730; 86140; 87040; 87804; 93005; 96365; 96375; 99284; 99285-25; J0696; J1650; J3490; J7040; Q9967; U0002

== ENCOUNTER → 2020-08-02 | Day surgery (SDC) | payer MEDICARE, BC ==
[~2020-08-02] MED LIST: Ketamine 200 MG/20 ML MDV ONE; Propofol 200 MG/20 ML SDV ONE; fentaNYL 100 MCG/2 ML SDV ONE
[2020-08-02] MEDS: Lactated Ringers 1,000 ML IV SCH (07:51)
[2020-08-02 09:25] VITALS: BP 132/82; PULSE 58
--- NOTE | 2020-08-02 10:16 | OR ---
DATE OF OPERATION: 08/02/2020 PREOPERATIVE DIAGNOSIS: FOLLOWUP POLYPS. POSTOPERATIVE DIAGNOSIS: FOLLOWUP POLYPS. SURGEON: Jorge Luis Xiong MD PROCEDURE: DIAGNOSTIC COLONOSCOPY WITH FORCEPS POLYP REMOVAL X2. ANESTHESIA: MAC. COMPLICATIONS: None. SPECIMEN: Two small tubular adenomas, possibly hyperplastic polyps. FINDINGS: 1. Full-length colonoscopy. 2. Two small sessile polyps, left colon. RECOMMENDATIONS: Followup colonoscopy in 5 to 8 years pending path report. INDICATIONS: The patient has a known history of polyps removed on prior colonoscopies. He is due for a 5-year followup. DESCRIPTION OF PROCEDURE: The patient was prepped and draped, placed in the left lateral decubitus position. A lubricated Olympus colonoscope was inserted and easily advanced through the cecum. We were able to directly visualize the ileocecal valve, palpate and visualize the light in the right lower quadrant. The bowel prep was excellent. Upon withdrawal of the scope throughout the cecum, right and transverse colon, no lesions were seen. The descending area appeared benign at around 70 cm. In the proximal sigmoid colon, the patient had one small flat sessile polyp removed with a forceps in its entirety, it was only about 2 to 3 mm. The rest of the sigmoid appeared benign. At the rectosigmoid junction, the patient had another slightly larger 3 to 4 mm sessile polyp removed with a forceps as well. The rest of the colon appeared benign without any signs of vascular abnormality, colitis, or diverticula. The rectal vault was benign. Retroflexion showed no perianal lesions. Air was suctioned and the scope removed without complication. SHIRAZ/KEVIN /[id number]
== END ==
LOC: CC.SDS 07:31
PROVIDERS: ATTEND Family Medicine
DX: Z12.11 Encounter for screening for malignant neoplasm of colon (principal); D12.5 Benign neoplasm of sigmoid colon; D12.8 Benign neoplasm of rectum; I10 Essential (primary) hypertension; E11.9 Type 2 diabetes mellitus without complications; I26.99 Other pulmonary embolism without acute cor pulmonale; Z01.812 Encounter for preprocedural laboratory examination; Z20.822 Contact with and (suspected) exposure to COVID-19; Z88.5 Allergy status to narcotic agent; Z79.01 Long term (current) use of anticoagulants; Z86.16 Personal history of COVID-19; Z98.890 Other specified postprocedural states
CPT/HCPCS: 00811; 45380; 82962; 88305; J2704; J3010; J7120; U0002